=== PATIENT | male | born 1990 | race Hispanic/Latino ===

== ENCOUNTER 2022-03-23 01:42 | Emergency (ER) | payer SELFPAY ==
[2022-03-23] MEDS ORDERED: METRONIDAZOLE 500mg IVPB 500 MG/100 ML BAG IV ONE (02:35)
[2022-03-23] MEDS ORDERED: CIPROFLOXACIN 400mg IV 400 MG/200 ML BAG IV ONE (02:35)
[2022-03-23] MEDS ORDERED: MORPHINE 4 MG/ML SYR ONE ×2 (02:35→05:16)
[2022-03-23] MEDS ORDERED: NA CHLORIDE 0.9% 1,000 ML ONE (02:35)
[2022-03-23] MEDS ORDERED: ONDANSETRON 4 MG/2 ML VIAL ONE (02:35)
[2022-03-23 02:39] LABS: Absolute Lymphocytes (CBC) 3.2 K/uL (0.7-4.9); Hematocrit 38.6 % (39.6-49.0); Lymphocytes % 22.6 % (15.3-44.8); MCV 82.8 fL (80-100); MPV 8.7 fL (7.6-11.3); RBC Red Blood Cell Count 4.67 M/uL (4.33-5.43)
[2022-03-23 02:50] LABS: Albumin 3.4 g/dL (3.4-5.0); Bilirubin Total 1.1 mg/dL (0.2-1.0); Potassium 3.4 mmol/L (3.5-5.1); Protein, Total 8.5 g/dL (6.4-8.2)
[2022-03-23 04:32] LABS: Urine Blood Negative (Negative); Urine Glucose Negative (Negative); Urine Protein 1+ (Negative); Urine Specific Gravity 1.015 (1.005-1.030); Urine pH 5.5 (5.0-7.0)
--- NOTE | 2022-03-23 04:38 | EDPHYS ---
Physician Documentation [facility] Name: Ryan Hernandez Jr Age: 32 yrs Sex: Male : 1990 Arrival Date: 03/23/2022 Time: 01:43 Bed 6 Private MD: ED Physician Marcus Moran HPI: 03/23 02:27 This 32 yrs old Male presents to ER via Ambulatory with complaints of Abdominal pain, rn constipation. 02:28 The patient presents with abdominal pain in the left lower quadrant. Onset: The rn symptoms/episode began/occurred 3 day(s) ago. The symptoms do not radiate. Associated signs and symptoms: Pertinent positives: constipation, Pertinent negatives: nausea and vomiting, blood in stools, fever. The symptoms are described as achy, intermittent, sharp. Modifying factors: The symptoms are alleviated by nothing, the symptoms are aggravated by movement, touching the area. Severity of pain: At its worst the pain was moderate in the emergency department the pain is unchanged. The patient has not experienced similar symptoms in the past. The patient has not recently seen a physician. Historical: - Allergies: 02:10 No Known Allergies; vc1 - Home Meds: 02:10 None [Active]; vc1 - PMHx: 02:10 Diabetes mellitus; vc1 - PSHx: 02:10 None; vc1 - Immunization history:: Adult Immunizations up to date, Client reports having NOT received the Covid vaccine. - Social history:: Smoking status: Patient denies any tobacco usage or history of. Patient uses alcohol, Every Saturday. - Family history:: not pertinent. - Hospitalizations: : No recent hospitalization is reported. ROS: 02:28 Constitutional: Negative for fever, chills, and weight loss, Eyes: Negative for injury, rn pain, redness, and discharge, Cardiovascular: Negative for chest pain, palpitations, and edema, Respiratory: Negative for shortness of breath, cough, wheezing, and pleuritic chest pain, Abdomen/GI: + abd pain and constipation Back: Negative for injury and pain, : Negative for injury, bleeding, discharge, and swelling, MS/Extremity: Negative for injury and deformity, Skin: Negative for injury, rash, and discoloration, Neuro: Negative for headache, weakness, numbness, tingling, and seizure. Exam: 02:28 Constitutional: This is a well developed, well nourished patient who is awake, alert, rn appears uncomfortable, ambulatory to room and triage without assistance Head/Face: Normocephalic, atraumatic. Cardiovascular: Regular rate and rhythm. No pulse deficits. Respiratory: Mild tachypnea, no retractions Abdomen/GI: soft, + LLQ tenderness with guarding, no rebound Skin: Warm, dry MS/ Extremity: Pulses equal, no cyanosis. Neuro: Awake and alert, GCS 15 Vital Signs: 02:04 BP 128 / 68; Pulse 76; Resp 21; Temp 98.5(O); Pulse Ox 99% ; Weight 152.41 kg; Height 5 vc1 ft. 7 in. (170.18 cm); 04:02 BP 123 / 72; Pulse 68; Resp 20; Pulse Ox 100% ; vc1 02:04 Body Mass Index 52.62 (152.41 kg, 170.18 cm) vc1 MDM: 01:48 Patient medically screened. rn 04:36 Differential diagnosis: appendicitis, diverticulitis, non-specific abd pain, rn Ureterolithiasis, urinary tract infection. Data reviewed: vital signs, nurses notes, lab test result(s), radiologic studies, CT scan, and as a result, I will discharge patient. Counseling: I had a detailed discussion with the patient and/or guardian regarding: the historical points, exam findings, and any diagnostic results supporting the discharge/admit diagnosis, lab results, radiology results, the need for outpatient follow up, to return to the emergency department if symptoms worsen or persist or if there are any questions or concerns that arise at home. Response to treatment: the patient's symptoms have markedly improved after treatment, and as a result, I will discharge patient. Special discussion: Based on the patient's Hx, exam, and Dx evaluation, there is no indication for emergent surgery or inpatient Tx. It is understood by the patient/guardian that if the Sx's persist or worsen they need to return immediately for re-evaluation. I discussed with the patient/guardian in detail that at this point there is no indication for admission to the hospital. It is understood, however, that if the symptoms persist or worsen the patient needs to return immediately for re-evaluation. Based on the history and exam findings, there is no indication for further emergent testing or inpatient evaluation. I discussed with the patient/guardian the need to see the teacher vocational training for further evaluation of the symptoms. I discussed with the patient/guardian the need to see the primary care provider for further evaluation of the symptoms. ED course: Pt feels much better, still a little pain, ct shows diverticulitis, which is what we expected, no perforation. Offered observation since first episode, patient declines, wants to go home and states will return if worsens. Return precautions given and understood. . 03/23 01:57 Order name: CBC with Diff; Complete Time: 03:14 rn 03/23 01:57 Order name: CMP; Complete Time: 03:14 rn 03/23 01:57 Order name: Lipase; Complete Time: 03:14 rn 03/23 01:57 Order name: Urine Microscopic Only rn 03/23 01:57 Order name: CT Abd/Pelvis - IV Contrast Only rn 03/23 04:32 Order name: Urine Dipstick-Ancillary; Complete Time: 04:35 EDMS 03/23 01:57 Order name: IV Saline Lock; Complete Time: 02:36 rn 03/23 01:57 Order name: Labs collected and sent; Complete Time: 02:36 rn 03/23 01:57 Order name: Urine Dipstick-Ancillary (obtain specimen); Complete Time: 04:39 rn Administered Medications: 02:36 Drug: NS 0.9% 1000 ml Route: IV; Rate: 1 bolus; Site: right antecubital; vc1 02:36 Drug: Zofran (Ondansetron) 4 mg Route: IVP; Site: right antecubital; vc1 04:04 Follow up: Response: No adverse reaction vc1 02:36 Drug: morphine 4 mg Route: IVP; Infused Over: 4 mins; Site: right antecubital; vc1 04:04 Follow up: Response: No adverse reaction; Marked relief of symptoms; Pain is decreased; vc1 RASS: Alert and Calm (0) 02:37 Drug: Cipro (ciprofloxacin) 400 mg Volume: 200 ml; Route: IVPB; Infused Over: 60 mins; vc1 Site: right antecubital; 02:37 Drug: Flagyl (metroNIDAZOLE) 500 mg Volume: 100 ml; Route: IVPB; Rate: 200 ml/hr; vc1 Infused Over: 30 mins; Site: right antecubital; 05:07 Drug: morphine 4 mg Route: IVP; Infused Over: 4 mins; Site: right antecubital; vc1 05:12 Follow up: Response: No adverse reaction; Medication administered at discharge. 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 - Prescription Opioid Use rn Prescriptions: - ondansetron 4 mg Oral tablet,disintegrating - place 1 tablet by TRANSLINGUAL route every 8 hours As needed; 15 tablet; rn Refills: 0, Product Selection Permitted - Flagyl 500 mg Oral Tablet - take 1 tablet by ORAL route every 8 hours for 10 days; 30 tablet; Refills: 0, rn Product Selection Permitted - Cipro 500 mg Oral Tablet - take 1 tablet by ORAL route every 12 hours for 10 days; 20 tablet; Refills: 0, rn Product Selection Permitted - Tylenol-Codeine #3 300 mg-30 mg Oral - take 1 tablet by ORAL route every 6-8 hours As needed; 15 tablet; Refills: 0, rn Product Selection Permitted Signatures: Dispatcher [employer] Marcus Coronel MD MD rn Calcote, Vanessa, RN RN vc1
--- NOTE | 2022-03-23 04:38 | ER ---
Nurse's Notes [facility] Name: Ryan Hernandez Jr Age: 32 yrs Sex: Male : 1990 Arrival Date: 03/23/2022 Time: 01:43 Bed 6 Private MD: Diagnosis: Diverticulitis of large intestine without perforation or abscess without bleeding Presentation: 03/23 02:04 Chief complaint: Patient states: "It started with constipation Saturday, then Saturday I vc1 was able to go a little bit but it was hard then a few hours later it was diarrhea. I went again today but it was just a few hard rene. Also, when I take a step on my left left it sends shooting pain through the left side of my stomach and into my chest.". Coronavirus screen: Vaccine status: Patient reports being unvaccinated. At this time, the client does not indicate any symptoms associated with coronavirus-19. Ebola Screen: No symptoms or risks identified at this time. Initial Sepsis Screen: Does the patient meet any 2 criteria? No. Patient's initial sepsis screen is negative. Does the patient have a suspected source of infection? No. Patient's initial sepsis screen is negative. Risk Assessment: Do you want to hurt yourself or someone else? Patient reports no desire to harm self or others. Onset of symptoms is unknown. 02:04 Method Of Arrival: Ambulatory vc1 02:04 Acuity: ABHI 3 vc1 Triage Assessment: 02:11 General: Appears in no apparent distress. uncomfortable, obese, Behavior is calm, vc1 cooperative, appropriate for age. Pain: Complains of pain in left lower quadrant Pain radiates to chest, epigastric area and left upper quadrant Pain. Neuro: Level of Consciousness is awake, alert, obeys commands, Oriented to person, place, time, situation, Appropriate for age. Cardiovascular: Capillary refill < 3 seconds Patient's skin is warm and dry. Respiratory: Airway is patent Respiratory effort is even, unlabored, Respiratory pattern is regular, symmetrical. GI: Reports lower abdominal pain, upper abdominal pain, constipation, diarrhea, epigastric pain. : No deficits noted. Derm: No deficits noted. Musculoskeletal: No deficits noted. Historical: - Allergies: 02:10 No Known Allergies; vc1 - Home Meds: 02:10 None [Active]; vc1 - PMHx: 02:10 Diabetes mellitus; vc1 - PSHx: 02:10 None; vc1 - Immunization history:: Adult Immunizations up to date, Client reports having NOT received the Covid vaccine. - Social history:: Smoking status: Patient denies any tobacco usage or history of. Patient uses alcohol, Every Saturday. - Family history:: not pertinent. - Hospitalizations: : No recent hospitalization is reported. Screenin:12 Abuse screen: Denies threats or abuse. Nutritional screening: No deficits noted. vc1 Tuberculosis screening: No symptoms or risk factors identified. Fall Risk None identified. Assessment: 02:00 Reassessment: See triage assessment. vc1 03:00 Reassessment: Patient and/or family updated on plan of care and expected duration. Pain vc1 level reassessed. Patient is alert, oriented x 3, equal unlabored respirations, skin warm/dry/pink. Patient states symptoms have improved. 03:50 Reassessment: Patient and/or family updated on plan of care and expected duration. Pain vc1 level reassessed. Patient is alert, oriented x 3, equal unlabored respirations, skin warm/dry/pink. Patient states feeling better. Vital Signs: 02:04 BP 128 / 68; Pulse 76; Resp 21; Temp 98.5(O); Pulse Ox 99% ; Weight 152.41 kg; Height 5 vc1 ft. 7 in. (170.18 cm); 04:02 BP 123 / 72; Pulse 68; Resp 20; Pulse Ox 100% ; vc1 02:04 Body Mass Index 52.62 (152.41 kg, 170.18 cm) vc1 ED Course: 01:43 Patient arrived in ED. ja2 01:48 Marcus Moran MD is Attending Physician. rn 02:10 Triage completed. vc1 02:12 Arm band placed on right wrist. vc1 02:13 Patient has correct armband on for positive identification. Pulse ox on. NIBP on. vc1 03:46 CT Abd/Pelvis - IV Contrast Only In Process Unspecified. EDMS 03:49 Billie Martinez, RAI is Primary Nurse. vc1 04:37 Lewis Chery MD is Referral Physician. rn 05:12 No provider procedures requiring assistance completed. IV discontinued, intact, vc1 bleeding controlled, No redness/swelling at site. Pressure dressing applied. Administered Medications: 02:36 Drug: NS 0.9% 1000 ml Route: IV; Rate: 1 bolus; Site: right antecubital; vc1 02:36 Drug: Zofran (Ondansetron) 4 mg Route: IVP; Site: right antecubital; vc1 04:04 Follow up: Response: No adverse reaction vc1 02:36 Drug: morphine 4 mg Route: IVP; Infused Over: 4 mins; Site: right antecubital; vc1 04:04 Follow up: Response: No adverse reaction; Marked relief of symptoms; Pain is decreased; vc1 RASS: Alert and Calm (0) 02:37 Drug: Cipro (ciprofloxacin) 400 mg Volume: 200 ml; Route: IVPB; Infused Over: 60 mins; vc1 Site: right antecubital; 02:37 Drug: Flagyl (metroNIDAZOLE) 500 mg Volume: 100 ml; Route: IVPB; Rate: 200 ml/hr; vc1 Infused Over: 30 mins; Site: right antecubital; 05:07 Drug: morphine 4 mg Route: IVP; Infused Over: 4 mins; Site: right antecubital; vc1 05:12 Follow up: Response: No adverse reaction; Medication administered at discharge. vc1 Medication: 03:03 VIS not applicable for this client. vc1 Outcome: 04:37 Discharge ordered by . rn 05:12 Discharged to home ambulatory, with family. vc1 05:12 Condition: good 05:12 Discharge instructions given to patient, Instructed on discharge instructions, follow up and referral plans. medication usage, Demonstrated understanding of instructions, follow-up care, medications, Prescriptions given X 4. 05:13 Patient left the ED. vc1 Signatures: Dispatcher [employer] EDMarcus Mayo MD MD rn Alexander, Jessica ja2 Calcote, Vanessa, RN RN vc1
[2022-03-23 04:49] LABS: Urine Bacteria <20 /HPF (<20); Urine Mucus Slight /HPF (None Seen); Urine RBC <5 /HPF (None Seen)
--- NOTE | 2022-03-23 11:17 | RAD REPORT ---
EXAM DESCRIPTION: CT - Abdomen Pelvis W Contrast - 03/23/2022 3:45 am CLINICAL HISTORY: 32 years, Male, LLQ abd pain, eval for diverticulitis COMPARISON: None. TECHNIQUE: Initial noncontrast axial images through the abdomen were generated utilizing 2 mm slice thickness at 2 mm interval reconstruction subsequent contrast images of the abdomen and pelvis were p erformed utilizing 2 mm slice thickness at 2 mm interval reconstruction from the lung bases to the is chial tuberosities after the administration of 100 cc of Omnipaque 350 at the rate of 3.0 cc/sec. In addition multiplanar reformats in the coronal and sagittal plane were obtained and reviewed. This exam was performed according to our departmental dose-optimization protocol, which includes auto mated exposure control, adjustment of the mA and/or kV according to patient size and/or use of iterat reynaldo reconstruction technique. FINDINGS: The lung bases demonstrate to be clear. The liver demonstrate decreased attenuation corresponding to fatty infiltration. Otherwise the, gallb ladder, pancreas, spleen and adrenal glands demonstrate to be unremarkable, no focal lesions are note d. The kidneys demonstrate normal uptake of contrast media. No evidence for nephrolithiasis and/or hydro nephrosis. Grossly the unopacified stomach and small bowel demonstrate to be within normal limits. There is no evidence for bowel dilatation/or free air. The appendix is normal. There is abnormal mucosal thickening with pericolonic haziness along the distal portion of the descen ding colon on axial image [id number] corresponding to focal area of acute diverticulitis. There is no evid ence for abscess formation/or perforation. The urinary bladder demonstrate to be unremarkable. The prostate gland is normal. The aorta demon strate to normal. There is no retroperitoneal lymphadenopathy. There is no ascites. The rest of the soft tissue and bony structures are within normal limits. IMPRESSION: Acute diverticulitis along the distal portion of the descending colon/left lower quadran t. No evidence for abscess formation and/or perforation. Fatty infiltration of the liver. Electronically signed by: Caio Tomas MD 03/23/2022 4:09 AM CDT Due to temporary technical issues with the PACS/Fluency reporting system, reports are being signed by the in house radiologists without review as a courtesy to insure prompt reporting. The interpreting radiologist is fully responsible for the content of the report.
[2022-03-24 14:35] VITALS: TEMP 98.5
[2022-03-24 14:37] VITALS: BP 123/72; O2SAT 100
== END 2022-03-23 05:13 | disposition home or self-care (01) ==
LOC: ER 01:42
DX: K57.32 Diverticulitis of large intestine without perforation or abscess without bleeding (principal); K59.00 Constipation, unspecified
CPT/HCPCS: 36415; 74177; 80053; 81003; 81015; 83690; 85025; 96374; 96375; 99284; J0744; J2405; J7030; Q9967